=== PATIENT | female | born 1955 | race Caucasian/White ===

== ENCOUNTER → 2021-07-05 | Emergency (ER) | payer OTHER ==
[~2021-07-05] VITALS: Ht 154.9 cm; Wt 47.6 kg
[~2021-07-05] MED LIST: AMLODIPINE BESYL5 MG; ATORVASTATIN CA10 MG; DICYCLOMINE HCL10 MG; OMEPRAZOLE20 MG
== END | disposition home or self-care (01) ==
LOC: ER 18:53
DX: R10.84 Generalized abdominal pain (principal)